=== PATIENT | female | born 2000 | race Caucasian/White ===

== ENCOUNTER 2024-08-12 16:46 | Emergency (ER) | payer MEDICAID ==
[~2024-08-12] VITALS: Ht 167.6 cm; Wt 58.0 kg
[2024-08-12 16:53] VITALS: O2SAT 100
[2024-08-12 19:01] LABS: CLARITY URINE CLOUDY (CLEAR); COLOR URINE YELLOW (YELLOW); GLUCOSE URINE NEGATIVE (NEGATIVE); KETONES URINE TRACE (NEGATIVE); LEUKOCYTE ESTERASE URINE 2+ (NEGATIVE); NITRITE URINE NEGATIVE (NEGATIVE); OCCULT BLOOD URINE NEGATIVE (NEGATIVE); PH URINE 6.5 (4.5-8.0); PROTEIN URINE 1+ (NEGATIVE)
[2024-08-12 19:06] LABS: BACTERIA URINE 2+; RBC URINE 0-2 /hpf (0-2); SQUAMOUS EPITHELIAL CELL URINE 1+ /lpf (RARE/1+)
[2024-08-12] MEDS ORDERED: CEPH500C2 MT (19:40)
[2024-08-12 19:54] VITALS: BP 141/72; PULSE 70; RESP 18; TEMP 37.11408; O2SAT 100
== END 2024-08-12 19:57 | disposition home or self-care (01) ==
LOC: ER 16:46
DX: R30.0 Dysuria (principal)
CPT/HCPCS: 81003; 81025; 99283